=== PATIENT | female | born 1950 | race Two or more races ===

== ENCOUNTER 2016-12-18 06:01 | Day surgery (SDC) | payer OTHER ==
[~2016-12-18] VITALS: Ht 149.9 cm; Wt 60.2 kg
[~2016-12-18 06:01] MED LIST: VALS40TA2 PO
[2016-12-18] MEDS ORDERED: BUPIVACAINE/PF 0.5% ONE (06:19)
[2016-12-18] MEDS ORDERED: LACTATED RINGERS 1,000 ML IV SCH (06:25)
[2016-12-18 06:28] VITALS: BP 118/82
[2016-12-18] MEDS ORDERED: METOCLOPRAMIDE 5 MG/ML, 2ML ONE (06:53)
[2016-12-18] MEDS ORDERED: CEFAZOLIN 1,000 MG ONE (06:53)
[2016-12-18] MEDS ORDERED: DEXAMETHASONE 4 MG/ML, 1ML ONE (06:53)
[2016-12-18] MEDS ORDERED: ONDANSETRON 2MG/ML, 2ML ONE (06:53)
[2016-12-18] MEDS ORDERED: PROPOFOL 10 MG/ML, 20ML ONE (06:53)
[2016-12-18] MEDS ORDERED: MIDAZOLAM 1 MG/ML, 2ML IV PRN (07:30)
[2016-12-18] MEDS ORDERED: hydrALAzine 20 MG/ML, 1ML IV PRN (07:30)
[2016-12-18] MEDS ORDERED: ACETAMINOPHEN 325 MG TABLET PO PRN (07:30)
[2016-12-18] MEDS ORDERED: LABETALOL 5MG/ML, 20ML IV PRN (07:30)
[2016-12-18] MEDS ORDERED: OXYcodone 5 MG/5 ML ORAL.SOL UDC PO PRN (07:30)
[2016-12-18] MEDS ORDERED: ONDANSETRON 2MG/ML, 2ML IVPush PRN (07:30)
[2016-12-18] MEDS ORDERED: HYDROmorphone 1 MG/ML, 1ML IV PRN (07:30)
[2016-12-18] MEDS ORDERED: OXYcodone 5 MG/5 ML ORAL.SOL UDC ONE (08:03)
[2016-12-18] MEDS ORDERED: FENTANYL PF 100 MCG/2ML ONE (08:03)
[2016-12-18] MEDS ORDERED: ACETAMINOPHEN 650 MG/20.3 ML UDC ONE (08:03)
[2016-12-18] MEDS: FENTANYL PF 100 MCG/2ML IV PRN ×2 (08:06→08:16)
== END 2016-12-18 09:45 ==
LOC: OUT 06:01
PROVIDERS: ATTEND Orthopaedic Surgery
DX: M67.441 Ganglion, right hand (principal)
CPT/HCPCS: 26160; 88304; J0690; J1100; J2405; J2704; J2765; J3010; J3490; J7120